=== PATIENT | male | born 1990 | race African-American/Black ===

== ENCOUNTER 2023-08-29 22:57 | Emergency (ER) | payer SELFPAY ==
[~2023-08-29] VITALS: Ht 170.2 cm; Wt 82.7 kg
[2023-08-29 22:58] VITALS: BP 128/71; PULSE 66; TEMP 97.8
[2023-08-30 01:25] LABS: BASO # 0.1 K/mm3 (0.0-0.2); BASO % 0.8 % (0.0-2.0); EOS # 0.1 K/mm3 (0.0-0.7); EOS % 2.1 % (0.0-4.0); GRAN # 2.5 K/mm3 (1.4-6.5); GRAN % 38.2 % (42.2-75.2); HEMATOCRIT 40.6 % (42.0-52.0); HEMOGLOBIN 13.8 g/dl (13.5-18.0); LYMPH # 3.1 K/mm3 (1.2-3.4); LYMPH % 46.8 % (20.0-51.0); MEAN CELL VOLUME 89 fl (80.0-100.0); MEAN CORPUSCULAR HEMOGLOBIN 30 pg (27-31); MEAN CORPUSCULAR HGB CONC 34 g/dl (33.0-37.0); MONO # 0.8 K/mm3 (0.1-0.6); MONO % 11.5 % (1.7-9.3); PLATELET COUNT 178 K/mm3 (130-400); RED BLOOD COUNT 4.59 M/mm3 (4.20-5.60); REDCELL DISTRIBUTION WIDTH-CV 14.2 % (11.5-14.5)
[2023-08-30 01:26] LABS: POTASSIUM 4.1 mEq/L (3.5-4.5)
[2023-08-30 02:04] LABS: ALBUMIN 3.7 g/dL (3.5-5.0); BILIRUBIN,TOTAL 0.8 mg/dL (0.2-1.2); CREATININE, serum 0.88 mg/dL (0.72-1.25); TOTAL PROTEIN 7.2 g/dl (6.2-8.1)
== END 2023-08-30 02:52 | disposition home or self-care (01) ==
LOC: COL.ER 22:57
PROVIDERS: Nurse Practitioner Family
DX: K12.0 Recurrent oral aphthae (principal); R53.81 Other malaise; R06.02 Shortness of breath; F17.290 Nicotine dependence, other tobacco product, uncomplicated

== ENCOUNTER 2023-09-22 22:34 | Emergency (ER) | payer SELFPAY ==
[~2023-09-22] VITALS: Ht 170.2 cm; Wt 85.0 kg
[2023-09-22 22:36] VITALS: TEMP 98.2
[2023-09-22] MEDS ORDERED: Ondansetron 4 MG/2 ML VIAL IV ONE (23:00)
[2023-09-22] MEDS ORDERED: NS 1,000 ML IV ONE (23:00)
[2023-09-22 23:18] LABS: COLLECTION METHOD CLEAN CATCH
[2023-09-22] MEDS ORDERED: Iohexol 300 - 100 ML VIAL IV ONE (23:20)
[2023-09-22] MEDS ORDERED: NS 100 ML IV ONE (23:21)
[2023-09-22 23:24] LABS: BASO % 0.6 % (0.0-2.0); EOS # 0.2 K/mm3 (0.0-0.7); EOS % 2.3 % (0.0-4.0); GRAN # 2.8 K/mm3 (1.4-6.5); GRAN % 40.8 % (42.2-75.2); HEMATOCRIT 42.7 % (42.0-52.0); HEMOGLOBIN 14.2 g/dl (13.5-18.0); LYMPH # 3.2 K/mm3 (1.2-3.4); MEAN CELL VOLUME 93 fl (80.0-100.0); MEAN CORPUSCULAR HEMOGLOBIN 31 pg (27-31); MEAN CORPUSCULAR HGB CONC 33 g/dl (33.0-37.0); MEAN PLATELET VOLUME 10.7 fl (7.4-10.4); MONO # 0.7 K/mm3 (0.1-0.6); MONO % 9.4 % (1.7-9.3); PLATELET COUNT 176 K/mm3 (130-400); REDCELL DISTRIBUTION WIDTH-CV 14.5 % (11.5-14.5)
[2023-09-22 23:29] LABS: URINE APPEARANCE CLEAR (CLEAR/HAZY); URINE BLOOD NEGATIVE (NEGATIVE); URINE COLOR YELLOW (YELLOW); URINE GLUCOSE NEGATIVE (NEGATIVE); URINE KETONE NEGATIVE (NEGATIVE); URINE NITRATE NEGATIVE (NEGATIVE); URINE PROTEIN(semi-quant) NEGATIVE (NEGATIVE)
[2023-09-22 23:39] LABS: ALBUMIN 3.5 g/dL (3.5-5.0); BILIRUBIN,TOTAL 0.5 mg/dL (0.2-1.2); CALCIUM 9.2 mg/dL (8.4-10.2); CREATININE, serum 1.09 mg/dL (0.72-1.25); POTASSIUM 3.6 mEq/L (3.5-4.5); TOTAL PROTEIN 7.2 g/dl (6.2-8.1); TRICYCLIC ANTIDEPRESS URINE NEGATIVE (NEGATIVE)
[2023-09-23] MEDS ORDERED: ZOFRAN ODT4 MG PO (00:23)
[2023-09-23 00:35] VITALS: BP 116/71; PULSE 76
== END 2023-09-23 00:35 | disposition home or self-care (01) ==
LOC: COL.ER 22:34
PROVIDERS: Family Medicine
DX: B34.9 Viral infection, unspecified (principal); R11.2 Nausea with vomiting, unspecified; R10.9 Unspecified abdominal pain; R51.9 Headache, unspecified; R53.81 Other malaise; F17.290 Nicotine dependence, other tobacco product, uncomplicated
CPT/HCPCS: J2405; J7030; Q9967